=== PATIENT | male | born 1930 | race Caucasian/White ===

== ENCOUNTER 2016-09-19 10:29 | Emergency (ER) | payer MEDICARE, OTHER ==
[2014-08-26 09:24] VITALS: BMI 33.4
[~2016-09-19 10:29] MED LIST: BAYER CHEWABLE81 MG PO; CORDARONE200 MG PO; COREG6.25 MG PO; FELODIPINE ER10 MG PO; IMDUR30 MG PO; IPRAT-ALBUT 0.5-3 ML UPD; LEVAQUIN750 MG PO; MEDROL DOSE PACK4 MG PO; MICARDIS HCT 81 EACH PO; PRILOSEC20 MG PO; TRIGLIDE160 MG PO; ZOCOR40 MG PO
[2016-09-19 11:28] LABS: BASOPHILS 0.4 % (0.0-2.0); EOSINOPHILS 2.1 % (0-7); HEMATOCRIT 43.9 % (42.0-54.0); HEMOGLOBIN 14.3 g/dL (13.5-17.5); IMMATURE GRANULOCYTES 0.7 % (0-5); LYMPHOCYTES 25.8 % (15-50); MCHC 32.6 g/dL (31.0-37.0); MCV 92.2 fL (80.0-100.0); MEAN PLATELET VOLUME 10.1 fL (7.4-10.4); MONOCYTES 10.9 % (2-11); NEUTROPHILS 60.1 % (40-80); PLATELET COUNT 191 10x3/uL (130-400); RBC 4.76 10x6/uL (4.20-6.10); RDW 14.7 % (11.5-14.5); WBC 7.5 10x3/uL (4.8-10.8)
[2016-09-19 12:01] LABS: CALC OSMOLALITY 278 mosm/kg (275-300); CALCIUM 9.6 mg/dL (8.5-10.1); CARBON DIOXIDE 25.7 mmol/L (21.0-32.0); CHLORIDE - SERUM 102 mmol/L (98-107); GLUCOSE 124 mg/dL (74-106); POTASSIUM - SERUM 4.2 mmol/L (3.5-5.1); SODIUM 139 mmol/L (136-145); TROPONIN-I 0.022 ng/mL (0.000-0.060); UREA NITROGEN 13 mg/dL (7-18); eGFR NON AFRICAN AMERICAN 75 mL/min (90-120)
== END 2016-09-19 13:06 | disposition home or self-care (01) ==
LOC: D.ER 10:29
PROVIDERS: Nurse Practitioner Acute Care
DX: R00.2 Palpitations (principal); Z95.1 Presence of aortocoronary bypass graft; K21.9 Gastro-esophageal reflux disease without esophagitis; E78.5 Hyperlipidemia, unspecified; E83.51 Hypocalcemia

== ENCOUNTER 2016-10-04 07:50 | Emergency (ER) | payer MEDICARE, OTHER ==
[2014-08-26 09:24] VITALS: BMI 33.4
[2016-10-04 08:46] LABS: APPEARANCE CLEAR (CLEAR); BILIRUBIN NEGATIVE (NEGATIVE); COLOR STRAW (YELLOW); GLUCOSE NEGATIVE (NEGATIVE); KETONE NEGATIVE (NEGATIVE); LEUKOCYTE ESTERASE NEGATIVE (NEGATIVE); NITRITE NEGATIVE (NEGATIVE); PROTEIN NEGATIVE (NEGATIVE); UROBILINOGEN NORMAL (NORMAL)
[2016-10-04 08:56] LABS: BASOPHILS 0.3 % (0.0-2.0); EOSINOPHILS 2.6 % (0-7); HEMATOCRIT 44.7 % (42.0-54.0); HEMOGLOBIN 14.9 g/dL (13.5-17.5); IMMATURE GRANULOCYTES 0.6 % (0-5); MCH 30.1 pg (26.0-34.0); MCHC 33.3 g/dL (31.0-37.0); MCV 90.3 fL (80.0-100.0); MEAN PLATELET VOLUME 10.2 fL (7.4-10.4); MONOCYTES 9.1 % (2-11); NEUTROPHILS 63.4 % (40-80); PLATELET COUNT 193 10x3/uL (130-400); RBC 4.95 10x6/uL (4.20-6.10); RDW 14.2 % (11.5-14.5); WBC 7.8 10x3/uL (4.8-10.8)
[2016-10-04 09:15] LABS: ALBUMIN 3.5 g/dL (3.4-5.0); ALKALINE PHOSPHATASE 97 U/L (46-116); ALT (SGPT) 18 U/L (10-68); CALC OSMOLALITY 277 mosm/kg (275-300); CALCIUM 9.4 mg/dL (8.5-10.1); CARBON DIOXIDE 28.6 mmol/L (21.0-32.0); CHLORIDE - SERUM 101 mmol/L (98-107); GLUCOSE 132 mg/dL (74-106); POTASSIUM - SERUM 3.8 mmol/L (3.5-5.1); PROTEIN - SERUM 7.2 g/dL (6.4-8.2); SODIUM 137 mmol/L (136-145); UREA NITROGEN 19 mg/dL (7-18); eGFR NON AFRICAN AMERICAN 75 mL/min (90-120)
[2016-10-04 09:21] LABS: CREATINE KINASE 35 UL (21-232); MAGNESIUM - SERUM 1.8 mg/dL (1.8-2.4); TROPONIN-I 0.023 ng/mL (0.000-0.060)
== END 2016-10-04 10:30 | disposition home or self-care (01) ==
LOC: D.ER 07:50
PROVIDERS: Emergency Medicine
DX: M54.2 Cervicalgia (principal); R61 Generalized hyperhidrosis; E74.39 Other disorders of intestinal carbohydrate absorption; Z95.1 Presence of aortocoronary bypass graft; K21.9 Gastro-esophageal reflux disease without esophagitis; E78.5 Hyperlipidemia, unspecified

== ENCOUNTER → 2017-01-03 14:41 | Outpatient (CLI) | payer MEDICARE, OTHER ==
[2014-08-26 09:24] VITALS: BMI 33.4
== END | disposition home or self-care (01) ==
LOC: D.MRI 14:41
DX: M54.2 Cervicalgia (principal)

== ENCOUNTER 2017-03-10 02:53 | Inpatient (IN) | payer MEDICARE, OTHER ==
[~2017-03-10] VITALS: Ht 172.7 cm; Wt 97.7 kg
[2017-03-10] VITALS (47 sets, daily range): BP systolic 100–164; BP diastolic 7–86; Ht 172.7 cm; Wt 97.7 kg
--- NOTE | ~2017-03-10 | HP ---
PATIENT: TIMOTHY CAICEDO MEDICAL RECORD: [id number] ACCOUNT: [id number] LOCATION:[facility]CV03 : 30 ADMISSION DATE: 03/10/17 HISTORY AND PHYSICAL EXAMINATION PROBLEM LIST: 1. Unstable angina. 2. Coronary artery disease. 3. Status post coronary artery bypass graft surgery in 2008. 4. Previous percutaneous transluminal coronary angioplasty stent many years ago. 5. Paroxysmal atrial fibrillation, controlled in sinus rhythm on Cordarone. 6. Hypertension. 7. Chronic obstructive pulmonary disease. 8. Past smoking history. 9. Hyperlipidemia. 10. Gastroesophageal reflux disease. HISTORY OF PRESENT ILLNESS: This is a gentleman with a past history of coronary artery disease status post coronary artery bypass graft surgery in 2008, percutaneous transluminal coronary angioplasty stent before that, who presents with one day of anginal symptomatology quite severe. The pain was 10/10 and relieved with multiple sublingual nitroglycerin and morphine. He is now pain free. His electrocardiogram is with nonspecific ST-T abnormalities. His troponin is normal. He is on a nitroglycerin drip. PHYSICAL EXAMINATION: HEAD, EYES, EARS, NOSE, AND THROAT: Benign. NECK: Supple. No jugular venous distention. Carotid upstroke plus two bilaterally without bruits. LUNGS: Overall clear to auscultation and percussion. HEART: Regular. Normal S1, normal S2. No S3, no S4. No murmurs. BONES, JOINTS, EXTREMITIES: No clubbing, cyanosis, or edema. CARDIOVASCULAR REVIEW OF SYSTEMS: Positive for paroxysmal atrial fibrillation. Positive for coronary artery bypass graft surgery. Positive for percutaneous coronary intervention. Negative for myocardial infarction. Negative for cerebrovascular accident. Negative for cancer. Negative for smoking. Negative for congestive heart failure. OVERALL IMPRESSION: Unstable angina with eight year old bypass grafts. Most likely he has recurrent hemodynamically significant coronary artery disease. Will proceed with coronary angiography. Further care depends upon the findings of the angiography. AMERICA SÁNCHEZ MD CC: [id number] DICTATION DATE: 03/10/17 1400 NEUROPSYCHIATRIST: CASTRO 03/11/17 1408 ADM IN [facility] [address] [id number]
--- NOTE | ~2017-03-10 | HEMODYNAMI ---
PATIENT:TIMOTHY CAICEDO MEDICAL RECORD: [id number] : 30 LOCATION:[place] [address] ADMISSION DATE: 03/10/17 Generatedon:03/10/201716:05 Patient name: TIMOTHY CAICEDO Patient #: [id number] SSN: : 1930 Date of study: 03/10/2017 Page: Of Hemodynamic Procedure Report Patient Data Patient Demographics Procedure consent was obtained First Name: TIMOTHY Gender: Male Last Name: SASCHA : 1930 [facility] Initial: R Age: 86 year(s) Patient #: [id number] Race: Additional ID: [id number] Contact details Address: [facility] [address] State: [place] City: [place] Zip code: [address] Admission Admission Data Admission Date: 03/10/2017 Admission Time: 4:44 Room #: [facility] Lab Results Lab Result Date: 03/10/2017 Lab Result Time: 3:25 Biochemistry Name Units Result Min Max BUN mg/dl 18 --(---*)-- 7 18 Creatinine mg/dl 1 --(--*-)-- 0.6 1.3 CBC Name Units Result Min Max Hematocrit % 44.9 --(*---)-- 42 54 Hemoglobin g/dl 15.2 --(-*--)-- 13.5 17.5 Procedure Procedure Types Cath Procedure Diagnostic Procedure LHC LHC w/Coronaries w/Grafts PCI Procedure SVG-BMS/BELIA Initial SVG-BMS/BELIA Additional Miscellaneous Procedures Moderate Sedation up to 45 minutes Procedure Description Procedure Date Procedure Date: 03/10/2017 Procedure Start Time: 14:09 Procedure End Time: 15:27 Procedure Staff Name Function Estefany Moctezuma RT Scrub Rodolfo Vogt RN Nurse Arsalan Ferris MD Performing Physician Jerrell Perry RT Monitor Procedure Data Cath Procedure Fluoroscopy Diagnostic fluoroscopy Total fluoroscopy Time: time: 20.3 min 20.3 min Diagnostic fluoroscopy Total fluoroscopy dose: dose: 2450 mGy 2450 mGy Contrast Material Contrast Material Type Amount (ml) Isovue 300 199 Entry Location Entry Primary Successful Side Size Upsize 1 Upsize Entry Closure Champagne ccessful Closure Location (Fr) (Fr) 2 (Fr) Remarks Device Remarks Femoral Right 5 Fr Exoseal artery Femoral Left 5 Fr 6 Fr Exoseal artery Mid-Length Femoral Left 6 Fr 6 Fr 6 Fr Exoseal artery Short Mid-Length Short Estimated blood loss: 10 ml Diagnostic catheters Device Type Used For End Catheter Placement Cordis 5Fr 3DRC Catheter Procedure (MP) Cordis 5Fr Pigtail Procedure Catheter (MP) Cordis 5Fr JL 4.0 Procedure Catheter (MP) Cordis 5Fr 3DRC Catheter Procedure (MP) Diagnostic Infinity 5Fr Procedure AR 2 MOD catheter Diagnostic Infinity 5Fr Procedure MPA-2 catheter Diagnostic Infinity 5Fr Procedure MPA-2 catheter Procedure Complications No complications Procedure Medications Medication Administration Route Dosage Oxygen NC 2 l/min Heparin Flush Bag added to field 2 bags (1000units/500ml NS) 0.9% NaCl I.V. 100 ml/hr Fentanyl I.V. 50 mcg Versed I.V. 1 mg Fentanyl I.V. 50 mcg Versed I.V. 1 mg Fentanyl I.V. 50 mcg Versed I.V. 1 mg Fentanyl I.V. 50 mcg Versed I.V. 1 mg Heparin Bolus I.V. 4000 units Fentanyl I.V. 50 mcg Integrilin (Bolus I.V. 9 ml 2mg/ml) Integrilin (Bolus I.V. 9 ml 2mg/ml) Fentanyl I.V. 50 mcg Fentanyl I.V. 50 mcg Fentanyl I.V. 50 mcg Lasix I.V. 40 mg Hemodynamics Rest HGB: 15.2 (g/dl) Heart Rate: 67 (bpm) Snapshots Pre Cath Intra NCS Post Cath Vital Signs Time Heart Resp SPO2 etCO2 XH4oyap NIBP (mmHg) Rhythm Pain Sedatio n Rate (ipm) (%) (mmHg) (mmHg) Status Level (bpm) 13:06:19 74 16 97 0 0 169/93(136) NSR 0 (11) 10(A) , No pain 13:10:43 80 17 98 0 0 171/88(152) NSR 0 (11) 10(A) , No pain 13:15:01 80 17 98 0 0 157/82(116) NSR 0 () 10(A) , No pain 13:19:21 64 17 88 0 0 127/72(96) NSR 0 () 10(A) , No pain 13:24:24 63 18 96 0 0 140/82(126) NSR 0 () 10(A) , No pain 13:28:44 71 16 97 0 0 141/73(97) NSR 0 () 10(A) , No pain 13:33:05 65 18 96 0 0 146/73(121) NSR 0 () 10(A) , No pain 13:37:23 64 17 99 0 0 163/85(131) NSR 0 () 10(A) , No pain 13:41:45 68 18 98 0 0 155/83(134) NSR 0 () 10(A) , No pain 13:45:59 72 19 98 0 0 152/92(125) NSR 0 () 10(A) , No pain 13:50:17 69 18 98 0 0 151/92(126) NSR 0 () 10(A) , No pain 13:54:31 71 19 98 0 0 145/92(125) NSR 0 () 10(A) , No pain 13:58:47 73 17 98 0 0 149/87(122) NSR 0 () 10(A) , No pain 14:03:09 66 18 98 0 0 143/71(121) NSR 0 () 9(A) , No pain 14:07:21 64 16 88 0 0 132/74(110) NSR 0 () 9(A) , No pain 14:11:31 64 18 94 0 0 150/91(127) NSR 0 () 9(A) , No pain 14:15:51 75 18 91 0 0 164/86(140) NSR 0 () 9(A) , No pain 14:20:13 68 18 82 0 0 160/87(140) NSR 0 () 9(A) , No pain 14:24:33 73 17 98 0 0 177/100(147) NSR 0 () 9(A) , No pain 14:28:55 74 18 98 0 0 173/85(148) NSR 0 (11) 9(A) , No pain 14:33:14 83 18 98 0 0 172/100(140) NSR 0 (11) 9(A) , No pain 14:37:30 91 18 98 0 0 174/104(131) NSR 0 (11) 9(A) , No pain 14:41:50 86 17 98 0 0 176/99(141) NSR 0 (11) 9(A) , No pain 14:46:10 89 18 99 0 0 171/109(136) NSR 0 (11) 9(A) , No pain 14:50:28 79 16 98 0 0 160/94(136) NSR 0 (11) 9(A) , No pain 14:54:50 64 18 98 0 0 141/78(113) NSR 0 (11) 9(A) , No pain 14:59:02 60 18 97 0 0 110/74(90) NSR 0 (11) 9(A) , No pain 15:03:10 57 18 97 0 0 127/68(98) NSR 0 (11) 9(A) , No pain 15:07:20 67 19 98 0 0 147/83(122) NSR 0 (11) 9(A) , No pain 15:11:38 68 17 98 0 0 154/81(117) NSR 0 (11) 9(A) , No pain 15:15:58 75 18 98 0 0 153/87(119) NSR 0 (11) 9(A) , No pain 15:20:08 72 18 98 0 0 123/85(109) NSR 0 (11) 9(A) , No pain 15:25:13 74 20 96 0 0 143/97(117) NSR 0 (11) 9(A) , No pain 15:41:42 72 13 98 0 0 144/88(118) NSR 0 (11) 9(A) , No pain Medications Time Medication Route Dose Verified Delivered Reason Notes Effectiveness by by 13:05:28 Oxygen NC 2 Rodolfo Reynolds Per physician l/min Sin Vogt RN RN 13:05:38 Heparin Flush added 2 Rodolfo Reynolds used for Bag to bags Sin Vogt field artillery fire control man (1000units/500ml field RN NS) 13:07:06 0.9% NaCl I.V. 100 Rodolfo Rodolfo Per physician ml/hr Sin Vogt RN RN 13:55:43 Fentanyl I.V. 50 Rodolfo Rodolfo for sedation mcg Sin Vogt RN RN 13:55:49 Versed I.V. 1 mg Rodolfo Rodolfo for sedation Sin Vogt RN RN 13:57:20 Fentanyl I.V. 50 Rodolfo Rodolfo for sedation mcg Sin Vogt RN RN 13:57:24 Versed I.V. 1 mg Rodolfo Rodolfo for sedation Sin Vogt RN RN 14:00:48 Fentanyl I.V. 50 Rodolfo Roodlfo for sedation mcg Sin Vogt RN RN 14:00:51 Versed I.V. 1 mg Rodolfo Rodolfo for sedation Sin Vogt RN RN 14:03:52 Fentanyl I.V. 50 Rodolfo Rodolfo for sedation mcg Sin Vogt RN RN 14:03:55 Versed I.V. 1 mg Rodolfo Rodolfo for sedation Sin Vogt RN RN 14:32:24 Heparin Bolus I.V. 4000 Rodolfo Rodolfo for units Sin Vogt RN anticoagulation RN 14:36:45 Fentanyl I.V. 50 Rodolfo Rodolfo for sedation mcg Sin Vogt RN RN 14:52:47 Integrilin I.V. 9 ml Rodolfo Rodolfo for wasted 1mL (Bolus 2mg/ml) Sin Vogt RN antiplatelet of RN therapy integrilin bolus 15:01:21 Integrilin I.V. 9 ml Rodolfo Rodolfo for wasted 1mL (Bolus 2mg/ml) Sin Vogt RN antiplatelet of RN therapy integrilin bolus 15:05:40 Fentanyl I.V. 50 Rodolfo Rodolfo for sedation mcg Sin Vogt RN RN 15:07:59 Fentanyl I.V. 50 Rodolfo Rodolfo for sedation mcg Sin Vogt RN RN 15:16:17 Fentanyl I.V. 50 Rodolfo Rodolfo for sedation mcg Sin Vogt RN RN 15:34:27 Lasix I.V. 40 mg Rodolfo Rodolfo Per physician Sin Vogt RN optical designer Log Time Note 12:50:52 Rodolfo Vogt RN sent for patient. Start room use. 12:50:53 Time tracking: Regular hours 12:50:58 Plan of Care:Hemodynamics will remain stable., Cardiac rhythm will remain stable., Comfort level will be maintained., Respiratory function will remain adequate., Patient/ family verbilizes understanding of procedure., Procedure tolerated without complication., Recovers from procedure without complications.. 12:58:48 Lab Result : Hemoglobin 15.2 g/dl 12:58:48 Lab Result : Hematocrit 44.9 % 12:58:48 Lab Result : BUN 18 mg/dl 12:58:48 Lab Result : Creatinine 1 mg/dl 12:58:58 Patient received from CVICU to CCL 1 Alert and oriented. Tansferred to table in Supine position. 12:58:59 Correct patient and procedure confirmed by team. 12:58:59 Warm blankets applied, and kong hugger turned on for patient comfort. 12:59:01 Signed procedure consent form obtained from patient. 12:59:02 ECG and BP/O2 sat monitors applied to patient. 12:59:09 H&P Date Dictated: 03/09/2017 Within 30 days and on chart.. 13:05:09 Vital chart was started 13:05:28 Oxygen 2 l/min NC was administered by Rodolfo Vogt RN; Per physician; 13:05:38 Heparin Flush Bag (1000units/500ml NS) 2 bags added to field was administered by Rodolfo Vogt RN; used for procedure; 13:07:06 0.9% NaCl 100 ml/hr I.V. was administered by Rodolfo Vogt RN; Per physician; 13:16:46 Baseline sample Acquired. 13:17:34 Rhythm: sinus rhythm 13:17:40 Pre-op teaching completed and patient verbalized understanding. 13:17:40 Pre-procedure instructions explained to patient. 13:17:52 Family unavailable. 13:17:54 Patient NPO since Midnight. 13:19:57 Is the patient allergic to Iodine/contrast media? No. 13:19:59 Is patient on blood thinner?Yes 13:20:01 ACC The patient was administered the following blood thiners within the last 24 hours: ACCPlavix 13:20:05 Patient diabetic? No. 13:20:08 Previous problem with sedation/anesthesia? No ? 13:20:09 Snore? Yes 13:20:10 Sleep apnea? Yes 13:20:11 Deviated septum? No 13:20:12 Sticks out tongue? Yes 13:20:12 Opens mouth fully? Yes 13:20:14 Airway obstruction? No ? 13:20:16 Dentures? No ? 13:20:22 Pre procedure: right dorsailis pedis pulse 1+ Palpable, but thready & weak; easily obliterated 13:20:24 Patient pain scale 0/10 ?. 13:23:37 IV patent on arrival in left forearm with 0.9% NaCl at [facility]. 13:23:41 Lab results completed and on chart. 13:23:45 Right groin area was prepped with chlora-prep and draped in sterile fashion 13:23:50 Sharps counted by scrub and verified by R.N. 13:23:50 Alarms reviewed by R. N. 13:24:10 Zero performed for pressure channel P1 13:24:49 Zero performed for pressure channel P1 13:44:52 Physician arrived 13:44:53 Final Timeout: patient, procedure, and site verified with staff and physician. All members of the team are in agreement. 13::53 --------ALL STOP TIME OUT------ 13:44:56 Right groin site verified by team. 13:44:58 Physical assessment completed. ASA score P 2 - A patient with mild systemic disease as per Arsalan Ferris MD. 13:45:02 Sedation plan: IV Moderate Sedation Versed, Fentanyl 13:55:43 Fentanyl 50 mcg I.V. was administered by Rodolfo Vogt RN; for sedation; 13:55:49 Versed 1 mg I.V. was administered by Rodolfo Vogt RN; for sedation; 13:57:20 Fentanyl 50 mcg I.V. was administered by Rodolfo Vogt RN; for sedation; 13:57:24 Versed 1 mg I.V. was administered by Rodolfo Vogt RN; for sedation; 14:00:48 Fentanyl 50 mcg I.V. was administered by Rodolfo Vogt RN; for sedation; 14:00:51 Versed 1 mg I.V. was administered by Rodolfo Vogt RN; for sedation; 14:03:52 Fentanyl 50 mcg I.V. was administered by Rodolfo Vogt RN; for sedation; 14:03:55 Versed 1 mg I.V. was administered by Rodolfo Vogt RN; for sedation; 14:09:44 Full Disclosure recording started 14:09:44 Procedure started. 14:09:47 Local anesthetic to right femoral artery with Lidocaine 2% by Arsalan Ferris MD.INITIAL ACCESS ONLY 14:09:54 A 5 Fr sheath was inserted into the Right Femoral artery 14:10:37 Use device set Femoral Dx 14:10:39 Tegaderm 4 x 4 opened to sterile field. 14:10:40 Acist Hand Control opened to sterile field. 14:10:40 Acist Manifold opened to sterile field. 14:10:41 Acist Syringe opened to sterile field. 14:10:42 Medline Cath Pack opened to sterile field. 14:10:42 Bag Decanter opened to sterile field. 14:10:43 Terumo 5Fr [place] Sheath opened to sterile field. 14:10:44 Diagnostic Infinity 5Fr Multipack catheter opened to sterile field. 14:10:45 St Jensen 260cm J .035 wire opened to sterile field. 14:11:06 A Cordis 5Fr 3DRC Catheter (MP) was advanced over the wire and used for Procedure. 14:18:39 Catheter removed. 14:19:40 Not able to advance wire. Moving to left femoral approach. 14:19:45 Local anesthetic to left femerol artery with Lidocaine 2% by Arsalan Ferris MD.ADDITIONAL ACCESS 14:19:55 Sheath upsized to a 6 Fr Mid-Length. 14:19:55 A 5 Fr sheath was inserted into the Left Femoral artery 14:20:31 Terumo 6Fr [place] Destination Sheath opened to sterile field. 14:22:41 A Cordis 5Fr Pigtail Catheter (MP) was advanced over the wire and used for Procedure. 14:22:43 LV gram done using ALVAREZ 14:22:45 Injector settings: Ml/sec: 10, Volume: 20, 14:22:51 EF : 25 % 14:23:18 Terumo ADVANTAGE 260CM glide wire opened to sterile field. 14:23:19 Terumo TORQUE DEVICE PLASTIC .038 opened to sterile field. 14:23:20 Catheter exchanged over wire. 14:23:25 A Cordis 5Fr JL 4.0 Catheter (MP) was advanced over the wire and used for Procedure. 14:23:30 Terumo 5Fr [place] Sheath opened to sterile field. 14:23:40 LCA angiography performed. 14:24:10 Catheter exchanged over wire. 14:24:22 A Cordis 5Fr 3DRC Catheter (MP) was advanced over the wire and used for Procedure. 14:24:44 STANTON to LAD angiography performed. 14:25:26 RCA angiography performed. 14:25:55 Catheter exchanged over wire. 14:25:59 A Diagnostic Infinity 5Fr AR 2 MOD catheter was advanced over the wire and used for Procedure. 14:26:51 SVG to Circ angiography performed. 14:27:12 SVG to RCA angiography performed. 14:28:57 Catheter removed. 14:29:20 A Diagnostic Infinity 5Fr MPA-2 catheter was advanced over the wire and used for Procedure. 14:29:46 Terumo 6Fr [place] Sheath opened to sterile field. 14:29:54 Merit BasixCompak Inflation Kit opened to sterile field. 14:29:55 Marin Whisper J 300cm 0.014 guide wire opened to sterile field. 14:29:58 Catheter removed. 14:31:08 Medtronic Launcher 6Fr MB 1 guide catheter opened to sterile field. 14:31:20 6 Fr MB1 guide catheter was inserted over the wire 14:32:24 Heparin Bolus 4000 units I.V. was administered by Rodolfo Vogt RN; for anticoagulation; 14:34:08 Guide Catheter removed. unable to cannulate vessel. 14:34:18 A Diagnostic Infinity 5Fr MPA-2 catheter was advanced over the wire and used for Procedure. 14:35:35 Catheter exchanged over wire. 14:35:39 6 Fr MB1 guide catheter was inserted over the wire 14:36:17 J wire removed. 14:36:45 Fentanyl 50 mcg I.V. was administered by Rodolfo Vogt RN; for sedation; 14:38:25 whisper wire advanced. 14:38:26 Wire advanced across lesion. 14:38:42 Inflation Number: 1 A Medtronic Integrity 4.0 X 9 stent was prepped and advanced across the Dist RCA. The stent was deployed at 13 KEVON for 0:10 (min:sec). 14:38:44 Stent catheter was removed intact over wire. 14:38:45 Guide catheter removed. 14:38:45 Wire removed. 14:39:13 Cordis 5Fr Exoseal opened to sterile field. 14:39:14 Cordis 6Fr Exoseal opened to sterile field. 14:39:27 Sheath removed intact; hemostasis achieved with Exoseal to the Right Femoral artery. 14:39:31 Sheath removed intact; hemostasis achieved with Exoseal to the Left Femoral artery. 14:39:33 Procedure ended.(Physican Out) 14:52:47 Integrilin (Bolus 2mg/ml) 9 ml I.V. was administered by Rodolfo Vogt RN; for antiplatelet therapy; wasted 1mL of integrilin bolus 14:55:[address] elevation. Dr. Ferris back in room, [facility]. 14:56:12 Zero performed for pressure channel P1 14:56:26 Local anesthetic to left femerol artery with Lidocaine 2% by Arsalan Ferris MD.ADDITIONAL ACCESS 14:56:49 A 6 Fr Short sheath was inserted into the Left Femoral artery 14:57:09 Medtronic Launcher 6Fr MB 1 guide catheter opened to sterile field. 14:57:47 St Jensen 260cm J .035 wire opened to sterile field. 14:57:48 Acist Hand Control opened to sterile field. 14:57:55 Merit BasixCompak Inflation Kit opened to sterile field. 14:57:56 Arrow 6Fr 45cm Sheath opened to sterile field. 14:57:58 Terumo 6Fr [place] Sheath opened to sterile field. 14:58:03 Tegaderm 4 x 4 opened to sterile field. 14:58:18 Sheath upsized to a 6 Fr Mid-Length. 14:59:15 6 Fr MB 1 guide catheter was inserted over the wire 15:01:07 Sibley Sci Choice PT Extra Support J 300cm .014 gu opened to sterile field. 15:01:21 Integrilin (Bolus 2mg/ml) 9 ml I.V. was administered by Rodolfo Vogt RN; for antiplatelet therapy; wasted 1mL of integrilin bolus 15:01:34 CHOICE PT EX SUPPORT wire advanced. 15:04:09 Wire advanced across lesion. 15:05:05 Inflation number: 1 A Sibley Sci [place] 2.5 X 20 balloon was prepped and advanced across the 1st RPL, then inflated to 9 KEVON for 0:10 (min:sec). 15:05:40 Fentanyl 50 mcg I.V. was administered by Rodolfo Vogt RN; for sedation; 15:06:02 Inflation number: 2 The Sibley Sci [place]ue[place] 2.5 X 20 balloon was reinflated across the 1st RPL, to 11 KEVON for 0:10 (min:sec). 15:07:59 Fentanyl 50 mcg I.V. was administered by Rodolfo Vogt RN; for sedation; 15:09:12 Inflation Number: 3 A Medtronic Integrity 3.0 X 30 stent was prepped and advanced across the 1st RPL. The stent was deployed at 11 KEVON for 0:10 (min:sec). 15:09:56 Inflation number: 4 The stent balloon was then re-inflated across the 1st RPL to 5 KEVON for 0:10 (min:sec). 15:11:16 Inflation number: 5 The stent balloon was then re-inflated across the 1st RPL to 13 KEVON for 0:10 (min:sec). 15:11:41 Stent catheter was removed intact over wire. 15:13:34 Inflation Number: 6 A Medtronic Integrity 3.5 X 15 stent was prepped and advanced across the 1st RPL. The stent was deployed at 13 KEVON for 0:10 (min:sec). 15:15:00 Sheath upsized to a 6 Fr Short. 15:15:41 Cordis 6Fr Exoseal opened to sterile field. 15:15:45 Stent catheter was removed intact over wire. 15:15:46 Wire removed. 15:15:47 Guide catheter removed. 15:15:56 Sheath removed intact; hemostasis achieved with Exoseal to the Left Femoral artery. 15:15:58 Procedure ended.(Physican Out) 15:16:12 Fluoroscopy time 20.30 minutes. 15:16:17 Fentanyl 50 mcg I.V. was administered by Rodolfo Vogt RN; for sedation; 15:16:18 Fluoroscopy dose: 2450 mGy 15:16:18 Flurop Dose total: 2450 15:20:04 Contrast amount:Isovue 300 199ml. 15:20:06 Sharps counted by scrub and verified by R.N. 15:21:22 St Jensen Femstop Arch Gold opened to sterile field. 15:21:42 Post-op/insertion site Right Femoral artery dressed using a 4 x 4 and Tegaderm. 15:21:55 Femstop placed over the left femerol artery at 163 mmHg. Hemostasis achieved. 15:22:01 Post right femoral artery:stable, soft, clean and dry 15:22:07 Post left femerol artery:stable 15:22:12 Post-procedure physical assessment completed. ASA score P 2 - A patient with mild systemic disease as per Arsalan Ferris MD. 15:22:16 Post procedure rhythm: unchanged. 15:22:18 Estimated blood loss: 10 ml 15:22:20 Post procedure instruction explained to patient.Patient verbalizes understanding. 15:22:24 Patient needs reinforcement of post procedure teaching. 15:23:22 Procedure type changed to Cath procedure, Diagnostic procedure, LHC, LHC w/Coronaries w/Grafts, PCI procedure, SVG-BMS/BELIA Initial, SVG-BMS/BELIA Additional, Miscellaneous Procedures, Moderate Sedation up to 45 minutes 15:27:29 Procedure and supply charges have been captured, reviewed, submitted and are correct. 15:27:31 Procedure Complication : No complications 15:27:37 See physician's report for complete and final results. 15:27:37 Vital chart was stopped 15:27:40 Report given to CVICU. 15:27:45 Patient transfered to CVICU with Stretcher. 15:27:48 Full Disclosure recording stopped 15:27:48 Procedure ended. 15:28:04 End room use (Document Last) 15:34:27 Lasix 40 mg I.V. was administered by Rodolfo Vogt RN; Per physician; Intervention Summary Intervention Notes Time ActionType Lesion and Equipment Action# Pressure Duration Attributes Used 14:38:42 Place stent Dist RCA Medtronic 1 13 00:10 Integrity 4.0 X 9 stent 15:05:05 Inflate 1st RPL Sibley 1 9 00:10 balloon Sci [place] 2.5 X 20 balloon 15:06:02 Reinflate 1st RPL Sibley 2 11 00:10 balloon Sci [place] 2.5 X 20 balloon 15:09:12 Place stent 1st RPL Medtronic 3 11 00:10 Integrity 3.0 X 30 stent 15:09:56 Reinflate 1st RPL Medtronic 4 5 00:10 stent Integrity balloon 3.0 X 30 stent 15:11:16 Reinflate 1st RPL Medtronic 5 13 00:10 stent Integrity balloon 3.0 X 30 stent 15:13:34 Place stent 1st RPL Medtronic 6 13 00:10 Integrity 3.5 X 15 stent Device Usage Item Name Manufacture Quantity Catalog Number Hospital Part Current Mini mal Lot# / Charge Number Stock Stock Serial# Code Tegaderm 4 3M 2 [id number] [id number] 5 x 4 Acist Acist 1 69503 612082 925175 452520 5 Manifold Medical Systems Inc Acist Hand Acist 2 54497 998510 294114 585653 5 Control Medical Systems Inc Acist Acist 1 69405 258898 660769 290448 20 Syringe Medical Systems Inc Bag Microtek 1 2002S 656780 99963 690490 5 DecAtacatto Fashion Marketplace [employer]. Medline Cardinal 1 [id number] 515689 24755 800930 5 Cath Pack Health Terumo 5Fr Terumo 2 [id number] 897829 227168 389841 40 [place] Sheath Diagnostic Cardinal 1 [id number] 660488 53208 544795 30 Infinity Health 5Fr Multipack catheter [facility] Jensen St Jensen 2 [id number] 697044 097697 710197 30 260cm J .035 wire Cordis 5Fr Cardinal 1 342015 5 3DRC Health Catheter (MP) Terumo 6Fr Terumo 1 RSR01 954685 89305 392342 5 [place] Destination Sheath Cordis 5Fr Cardinal 1 621303 5 Pigtail Health Catheter (MP) Terumo Terumo 1 [id number] 767196 051593 5 ADVANTAGE 260CM glide wire Terumo [place] 1 TD01 370291 521492 608021 5 TORQUE Scientific DEVICE PLASTIC .038 Cordis 5Fr Cardinal 1 214655 5 JL 4.0 Health Catheter (MP) Diagnostic Cardinal 1 [id number] 736689 968329 783903 20 Infinity iNEWiT 5Fr AR 2 MOD catheter Diagnostic Cardinal 1 [id number] 925460 680770 535482 5 Infinity Health 5Fr MPA-2 catheter Terumo 6Fr Terumo 2 [id number] 493682 327223 688120 40 [place] Sheath Merit Merit 2 BY0244 044179 809871 186285 15 Rough Cut Films Medical Inflation Kit Marin Marin 1 [id number] 430334 756567 675856 5 Whisper J Vascular 300cm 0.014 guide wire Medtronic Medtronic 2 [id number] 805957 98964 630660 1 Launcher 6Fr MB 1 guide catheter Medtronic Medtronic 1 [id number] 467799 0629801 2 [id number] Integrity 4.0 X 9 stent Cordis 5Fr Cardinal 1 EX500 107721 860342 180630 10 Exoseal Health Cordis 6Fr Cardinal 2 EX600 780130 536360 172564 10 Exoseal Health Arrow 6Fr Teleflex 1 CL-43432 864930 769518 135553 5 45cm Sheath Sibley Sci Sibley 1 [id number] 036986 277809 471050 5 Choice PT Scientific Extra Support J 300cm .014 gu Sibley Sci Sibley 1 [id number] 802577 839315 600656 1 [id number] CharityStars 2.5 X 20 balloon Medtronic Medtronic 1 [id number] 270374 180641 4 [id number] Integrity 3.0 X 30 stent Medtronic Medtronic 1 [id number] 271793 214878 3 [id number] Integrity 3.[address] Jensen 1 [id number] 779806 075493 286540 5 Femstop Arch Gold Signature Audit Balsam Stage Time Signature Unsigned Intra-Procedure 03/10/2017 Jerrell Perry RT(R) Jerrell Perry RT(R) 3:42:58 PM 03/10/2017 4:03:08 PM Intra-Procedure 03/10/2017 Jerrell Perry RT(R) 4:05:49 PM Signatures Monitor : Jerrell Perry RT Signature : Date : Time : [facility] [address] [place] [address]
--- NOTE | ~2017-03-10 | OP ---
PATIENT NAME: TIMOTHY CAICEDO MEDICAL RECORD: [id number] :30 LOCATION:[facility] ADMISSION DATE:03/10/17 SURGEON: AMERICA SÁNCHEZ MD OPERATION DATE: 03/10/17 PROCEDURES: 1. Percutaneous transluminal coronary angioplasty stent right coronary artery PLV. 2. Selective coronary angiography. INDICATION: Acute ST elevation after coronary intervention. PROCEDURE IN DETAIL: The patient had removal of all sheaths. He then had acute ST elevation. The left femoral area was prepped and draped in a normal sterile fashion. The left femoral artery was cannulated via modified Seldinger technique with placement of 6-Scottish sheath. All catheters exchanged through this sheath. FINDINGS: The PLV branch was totally occluded after the previously placed stent. It is unknown if this was secondary to wire trauma or embolization or acute clot. Looking back at the last film, there was no evidence of any of this at the last run. The ST elevation happened approximately 10 minutes after that last run, hence it must be acute thrombosis. We stented this open with a 3.5 X 15 millimeter and 3.0 X 30 millimeter, both Integrity stents. The result was 0% residual stenosis. No further dissection or thrombus, anabaptist of JULIANA 3 flow. IMPRESSION: Successful percutaneous transluminal coronary angioplasty stent of the right coronary artery PLV for acute closure after percutaneous transluminal coronary angioplasty stent of the right coronary artery going from 100% initial stenosis to 0% residual stenosis. AMERICA SÁNCHEZ MD CC: [id number] DICTATION DATE: 03/10/17 1400 AUTOMOTIVE [employer] COUNTER ASSOCIATE: DM 03/11/17 1439 ADM IN [place] [id number] [place] [id number]
--- NOTE | ~2017-03-10 | OP ---
PATIENT NAME: TIMOTHY CAICEDO MEDICAL RECORD: [id number] :30 LOCATION:[facility] ADMISSION DATE:03/10/17 SURGEON: AMERICA SÁNCHEZ MD OPERATION DATE: 03/10/17 PROCEDURES: 1. Percutaneous transluminal coronary angioplasty stent right coronary artery. 2. Left heart catheterization. 3. Selective coronary angiography. 4. Vein graft angiography. 5. Left internal mammary artery angiography. 6. Left ventriculogram. INDICATION: 1. Angina. 2. Coronary artery disease. PROCEDURE IN DETAIL: After informed consent was obtained and after detailed explanation of risks, benefits, as well as alternative therapies, the patient elected to proceed with angiogram and angioplasty. The left femoral area was prepped and draped in a normal sterile fashion. The left femoral artery was cannulated via modified Seldinger technique with placement of 6-Tamazight sheath. All catheters exchanged through this sheath. FINDINGS: Left ventriculogram was performed in standard 30 degree ALVAREZ view, reveals global hypokinesis throughout all segments. Overall ejection fraction is 20-25%. SELECTIVE CORONARY ANGIOGRAPHY: 1. Left main is with no significant angiographic disease. 2. Left anterior descending is totally occluded. 3. Left internal mammary artery to the left anterior descending is widely patent. Distal left anterior descending is widely patent. 4. Left circumflex was totally occluded. 5. Vein graft to the circumflex was widely patent. Distal circumflex is small, diffusely diseased, but widely patent. 6. Right coronary artery was totally occluded. 7. Vein graft to the right coronary artery was widely patent. However, after this there is a 70-75% stenosis. PTCA STENT OF THE RIGHT CORONARY ARTERY: The stent used was a 4.0 X 9 millimeter Integrity. Result was 0% residual stenosis. OVERALL IMPRESSION: Successful percutaneous transluminal coronary angioplasty stent of the distal right coronary artery through the vein graft going from 70-75% initial stenosis to 0% residual stenosis. AMERICA SÁNCHEZ MD CC: [id number] DICTATION DATE: 03/10/17 1400 CYBER OPERATOR: CASTRO 03/11/17 1432 ADM IN [facility] [address] [place] [address]
[2017-03-10 03:40] LABS: BASOPHILS 0.2 % (0-2); EOSINOPHILS 0.5 % (0-7); HEMATOCRIT 44.9 % (42.0-54.0); HEMOGLOBIN 15.2 g/dL (13.5-17.5); LYMPHOCYTES 20.8 % (15-50); MCH 30.5 pg (26.0-34.0); MCHC 33.9 g/dL (31.0-37.0); MEAN PLATELET VOLUME 9.5 fL (7.4-10.4); MONOCYTES 11.9 % (2-11); NEUTROPHILS 60.6 % (40-80); PLATELET COUNT 243 10x3/uL (130-400); RBC 4.99 10x6/uL (4.20-6.10); RDW 14.7 % (11.5-14.5); WBC 11.9 10x3/uL (4.8-10.8)
[2017-03-10 03:50] LABS: ALBUMIN 3.4 g/dL (3.4-5.0); ALKALINE PHOSPHATASE 86 U/L (46-116); ALT (SGPT) 26 U/L (10-68); BILIRUBIN - TOTAL 0.47 mg/dL (0.2-1.3); CALC OSMOLALITY 267 mosm/kg (275-300); CALCIUM 8.8 mg/dL (8.5-10.1); CHLORIDE - SERUM 97 mmol/L (98-107); GLUCOSE 91 mg/dL (74-106); POTASSIUM - SERUM 4.5 mmol/L (3.5-5.1); PROTEIN - SERUM 6.6 g/dL (6.4-8.2); SODIUM 133 mmol/L (136-145); UREA NITROGEN 18 mg/dL (7-18); eGFR NON AFRICAN AMERICAN 75 mL/min (90-120)
[2017-03-10 04:01] LABS: CHOL - HDL RATIO 2.3 ratio (2.3-4.9); CHOLESTEROL, TOTAL 169 mg/dL (0-200); CKMB 1.4 U/L (0.0-3.6); CREATINE KINASE 30 UL (21-232); HDL CHOLESTEROL 75 mg/dL (32-96); LDL CHOLESTEROL 56 mg/dL (0-100); LDL-HDL RATIO 0.7 ratio (1.5-3.5); TRIGLYCERIDE 190 mg/dL (30-200); TROPONIN-I 0.023 ng/mL (0.000-0.060)
--- NOTE | 2017-03-10 06:21 | NUR ---
RECEIVED PATIENT FROM ER AT 0535. PT IS ON A NITRO DRIP AT 10 MCG/MIN. PT IS SINUS RHYTHM AT A RATE OF 68. DENIES ANY CHEST DISCOMFORT AT THIS TIME. O2 AT 2L NC, O2 SAT 98%. RR 16. VSS. WILL MONITOR CLOSELY FOR CHANGES THROUGHOUT SHIFT.
--- NOTE | 2017-03-10 07:00 | NUR ---
PT REPORT REC'D, PT CARE ASSUMED. PT RESTING WITH EYES CLOSED, NO C/O PAIN, STATES "THE PAIN HAS GONE AWAY SINCE I GOT PUT UP HERE, THAT MEDICINE MUST BE WORKING." LEFT AC PIV WITH FLUIDS INFUSING, SEE FLOW SHEET. BEDSIDE URINAL NEEDED. SHIFT ASESSMENT COMPLETED, SEE FLOW SHEET. ROOM FREE OF CLUTTER, CALL LIGHT IN REACH, WILL CONTINUE TO MONITOR PT.
--- NOTE | 2017-03-10 08:10 | NUR ---
DR. SÁNCHEZ AT THE BEDSIDE
--- NOTE | 2017-03-10 11:00 | NUR ---
PT RESTING WITH EYES CLOSED, NO C/O PAIN, VSS, REASSESSMENT COMPLETED, SEE FLOW SHEET. ROOM FREE OF CLUTTER, CALL LIGHT IN REACH, WILL CONTINUE TO MONITOR PT.
--- NOTE | 2017-03-10 12:54 | NUR ---
JULES RN WITH STRAINER CLEANER AT THE BEDSIDE
--- NOTE | 2017-03-10 12:57 | NUR ---
PT TRANSFERRED TO PROJECT MANAGEMENT IT SPECIALIST
--- NOTE | 2017-03-10 14:10 | NUR ---
* Is the patient Alert and Oriented? Yes 0 * How many steps to enter\exit or inside your home? 0 0 * PCP Dr. Fletcher 0 * Pharmacy [facility] 0 * Preadmission Environment Home Alone 0 * ADLs Independent 0 * List name and contact numbers for known caregivers / representatives who currently or will assist patient after discharge: Nephember Jamison [phone] Clive Jamison [phone] 0 * Additional services required to return to the preadmission environment? No 0 * Can the patient safely return to the preadmission environment? Yes 0 * Has this patient been hospitalized within the prior 30 days at any hospital? No 03/10/2017 14:17 DCP: Discharge Planning Patient Name: TIMOTHY CAICEDO Admission Status: ER Accout number: [id number] Admission Date: 03-10-2017 : 1930 Admission Diagnosis: Attending: MARNI Current LOS: 1 Anticipated DC Date: 03-10-2017 Planned Disposition: Home Primary Insurance: MEDICARE A & B Discharge Planning Comments: CM met with patient to assess dc plans/needs. Patient states he lives alone and is independent with all ADL''s & IADL's. He denies using any assistive devices for mobility. He states he had home health services in 2009 following bypass surgery, but unable to recall which agency. He plans to return home @ discharge. He states his nephew and his will assist with any needs he may have. No needs identified or verbalized @ this time. CM will follow. Cryptologic Support Specialist: Marly Rivas
--- NOTE | 2017-03-10 16:00 | NUR ---
REC'D PT FROM DYE HOUSE WORKER, PT RESTING WITH EYES CLOSED. HEMATOMA TO LEFT GROIN, FEM STOP IN PLACE, LEFT LOWER EXTREMITY PULSE PALPABLE, VSS, 2LNC. DUNN CATHETER FREE OF KINKS TO GRAVITY WITH REINA URINE RETURN. WILL CONTINUE TO MONITOR PT.
--- NOTE | 2017-03-10 16:14 | NUR ---
PT NEPHEW AT THE BEDSIDE, ALL QUESTIONS ANSWERED, SECURITY CODE "GARZON" ESTABLISHED.
[2017-03-10 17:22] LABS: BASOPHILS 0.1 % (0-2); EOSINOPHILS 0.4 % (0-7); HEMATOCRIT 43.4 % (42.0-54.0); HEMOGLOBIN 14.9 g/dL (13.5-17.5); LYMPHOCYTES 19.2 % (15-50); MCH 30.3 pg (26.0-34.0); MCHC 34.3 g/dL (31.0-37.0); MCV 88.4 fL (80.0-100.0); MEAN PLATELET VOLUME 9.4 fL (7.4-10.4); MONOCYTES 9.4 % (2-11); NEUTROPHILS 66.9 % (40-80); RBC 4.91 10x6/uL (4.20-6.10); RDW 14.5 % (11.5-14.5); WBC 13.5 10x3/uL (4.8-10.8)
[2017-03-10 17:23] LABS: PLATELET COUNT 185 10x3/uL (130-400)
--- NOTE | 2017-03-10 20:31 | NUR ---
REPORT RECEIVED AND ASSESSMENT COMPLTED. PT WENT TO CATH TODAY. STENTS PLACED X 2. BILAT GROIN DRESSINGS. RIGHT SIDE CDI. LEFT SIDE HAS HEMATOMA. MARKED TO OBSERVE CHANGES. DUNN NOW IN PLACE. URINE IS DARK RED. VSS. WILL CONTINUE TO MONITOR.
--- NOTE | 2017-03-10 21:00 | NUR ---
NO CHANGES IN STATUS AT THIS TIME. VSS. HEMATOMA HAS NOT SPREAD FROM ORIGINAL TABBY AT THIS TIME. WILL CONTINUE TO MONITOR.
--- NOTE | 2017-03-10 23:00 | NUR ---
REASSESSMENT COMPLETED. SEE FLOWSHEET FOR FULL DETAILS. THERE IS SOME ADDITIONAL BRUISING ON LEFT GROIN. NO SIGNS THAT HEMATOMA HAS SPREAD AT THIS TIME. WILL CONTINUE TO MONITOR FOR CHANGES. VSS.
[2017-03-11] VITALS (21 sets, daily range): BP systolic 91–142; BP diastolic 55–74
--- NOTE | 2017-03-11 01:19 | NUR ---
pt has become nauseated. 100ml emesis produced. will continue to monitor. provided with moist rag. slightly elevated head of bed at this time to prevent aspiration. vss. will monitor
--- NOTE | 2017-03-11 03:00 | NUR ---
REASSESSMENT COMPLETED PT DENIES BEING NAUSEATED AT THIS TIME AND IS RESTING IN ROOM. VSS. WILL CONTINUE TO MONITOR.
--- NOTE | 2017-03-11 05:00 | NUR ---
I&O COLLECTED. AT THIS TIME. 1000 URINE OUT. 196 ML DOBUTAMINE INFUSED OVER SHIFT. NO OTHER CHANGES IN STATUS AT THIS TIME. VSS. WILL MONITOR
--- NOTE | 2017-03-11 07:00 | NUR ---
PT REPORT REC'D, PT CARE ASSUMED. PT AAOX4 NO C/O PAIN, VSS. PT "WAS SCRATCHING ARM, ACCIDENTALLY PULLED IT OUT" LEFT AC PIV DC'ED, TIP INTACT. RESITED PIV TO LEFT HAND, FLUSHES WELL, NO SIGNS OF INFILTRATION, SECURED TO HAND, FLUSHED WITH 10CC OF NS, DOBUTAMINE INFUSING, DRESSING CDI. DUNN CATHETER FREE OF KINKS TO GRAVITY WITH YELLOW URINE RETURN. RIGHT GROIN INCISION, DRESSING CDI. LEFT GROIN INCISION, DRESSING CDI, BRUISING NOTED. BRUISING TO SCROTUM NOTED. SHIFT ASSESSMENT COMPLETED, SEE FLOW SHEET. ROOM FREE OF CLUTTER, CALL LIGHT IN REACH, WILL CONTINUE TO MONITOR PT.
--- NOTE | 2017-03-11 09:00 | NUR ---
PT RESTING WITH EYES CLOSED, NO C/O PAIN, VSS, WILL CONITNUE TO MONITOR PT.
--- NOTE | 2017-03-11 09:30 | NUR ---
PTS NIECE AT THE BEDSIDE BRINGING PTS DENTURES, PT RESTING WITH EYES CLOSED, "WILL YOU PLEASE TELL HIM THAT I (AMINA) CAME BY" WILL INFORM PT.
--- NOTE | 2017-03-11 13:41 | NUR ---
DR. SÁNCHEZ AT THE BEDSIDE
--- NOTE | 2017-03-11 15:20 | NUR ---
PHYSICAL THERAPY AMBULATING PT. PT TOLERATEING WELL
--- NOTE | 2017-03-11 16:02 | NUR ---
PT REPORT CALLED TO DILLON GUAMAN, PT TO TRANSFER TO ROOM 2114 VIA WHEELCHAIR, PTS NEPHEW ARTEMIO INFORMED.
--- NOTE | 2017-03-11 16:48 | NUR ---
TRANSFER FROM [facility] BY W/Nate BRYAN TO ROOM. CALL LIGHT IN REACH. WILL CONT. PLAN OF CARE.
--- NOTE | 2017-03-11 19:00 | NUR ---
RECEIVED REPORT AND ASSUMED PT CARE FROM DAY SHIFT NURSE @ THIS TIME.
--- NOTE | 2017-03-11 22:33 | NUR ---
PT RESTING WITHOUT C/O OR DISTRESS NOTED. CALL LIGHT WITHIN REACH. NO NEEDS VERBALIZED. BED ALARM SET. WILL CONTINUE TO MONITOR.
[2017-03-12] VITALS: BP 143/63
--- NOTE | 2017-03-12 00:13 | NUR ---
ASSESSMENT REMAINS UNCHANGED. PT RESTING SOUNDLY WITHOUT C/O OR DISTRESS NOTED. DENIES ANY CURRENT C/O PAIN. WILL CONT TO MONITOR
--- NOTE | 2017-03-12 07:30 | NUR ---
RECEIVED PT IN BED WITH EYES CLOSED RESP UNLABORED NAD NOTED
[2017-03-12 07:42] VITALS: BP 117/60
--- NOTE | 2017-03-12 14:00 | NUR ---
REVIEWED DISCHARGE INSTRUCTIONS WITH PT STATES UNDERSTANDING COPY GIVEN DCD SALINE LOCK TO LT HAND WITH IV CATHETER INTACT SITE FREE OF REDNESS OR EDEMA PT DISCHARGED HOME IN STABLE CONDITION LEFT UNIT VIA W/C WITH ALL PERSONAL BELONGINGS ASSISTED BY STAFF AND FAMILY
== END 2017-03-12 14:00 | disposition home or self-care (01) | DRG 248 ==
LOC: D.ER 02:53 → D.CVICU 04:44 → D.M2 03-11 16:29
PROVIDERS: Family Medicine; ADMIT Internal Medicine Interventional Cardiology
PROC: 02703DZ Dilation of Coronary Artery, One Artery with Intraluminal Device, Percutaneous Approach (ICD-10-PCS; principal; 2017-03-10)
PROC: 4A023N7 Measurement of Cardiac Sampling and Pressure, Left Heart, Percutaneous Approach (ICD-10-PCS; 2017-03-10)
PROC: 02703EZ Dilation of Coronary Artery, One Artery with Two Intraluminal Devices, Percutaneous Approach (ICD-10-PCS; 2017-03-10)
PROC: B2121ZZ Fluoroscopy of Single Coronary Artery Bypass Graft using Low Osmolar Contrast (ICD-10-PCS; 2017-03-10)
PROC: B2111ZZ Fluoroscopy of Multiple Coronary Arteries using Low Osmolar Contrast (ICD-10-PCS; 2017-03-10)
PROC: B2151ZZ Fluoroscopy of Left Heart using Low Osmolar Contrast (ICD-10-PCS; 2017-03-10)
DX: I25.10 Atherosclerotic heart disease of native coronary artery without angina pectoris (principal); I21.3 ST elevation (STEMI) myocardial infarction of unspecified site; I25.110 Atherosclerotic heart disease of native coronary artery with unstable angina pectoris; I97.610 Postprocedural hemorrhage of a circulatory system organ or structure following a cardiac catheterization; J44.9 Chronic obstructive pulmonary disease, unspecified; I48.0 Paroxysmal atrial fibrillation; I10 Essential (primary) hypertension; E78.5 Hyperlipidemia, unspecified; K21.9 Gastro-esophageal reflux disease without esophagitis; I42.0 Dilated cardiomyopathy; Z95.1 Presence of aortocoronary bypass graft; Z87.891 Personal history of nicotine dependence; Z95.5 Presence of coronary angioplasty implant and graft; Y84.0 Cardiac catheterization as the cause of abnormal reaction of the patient, or of later complication, without mention of misadventure at the time of the procedure; R79.89 Other specified abnormal findings of blood chemistry